=== PATIENT | male | born 1985 ===

== ENCOUNTER 2024-06-24 22:08 | Emergency (ER) | payer OTHER ==
[~2024-06-24] VITALS: Ht 177.8 cm; Wt 100.0 kg
[2024-06-24 22:56] VITALS: BP 138/79; PULSE 83; RESP 16; TEMP 98.3; O2SAT 98
[2024-06-24] MEDS: KETOROLAC TROMETHAMINE 60 MG/2 ML VIAL IM ONE (23:17)
[2024-06-24] MEDS: ACETAMINOPHEN 500 MG TABLET PO ONE (23:17)
== END 2024-06-25 00:01 ==
LOC: EMS 22:08
DX: S80.02XA Contusion of left knee, initial encounter (principal); F10.10 Alcohol abuse, uncomplicated; R60.1 Generalized edema; V89.2XXA Person injured in unspecified motor-vehicle accident, traffic, initial encounter; Y93.89 Activity, other specified; Y92.89 Other specified places as the place of occurrence of the external cause; Y99.8 Other external cause status
CPT/HCPCS: 99283; 73562; 96372; J1885